=== PATIENT | female | born 1950 | race Caucasian/White ===

== ENCOUNTER → 2017-02-17 | Outpatient (CLI) | payer OTHER ==
[~2017-02-17] MED LIST: ALPRAZOLAM; AMLODIPINE BESYL5 MG PO; ANTARA PO; ASPIRIN81 M1 PO; ATENOLOL; ATENOLOL PO; AZITHROMYCIN500 MG PO; GLUCOTEN CAPLET1 TAB PO; LEVAQUIN750 MG PO; LEVOTHROID100 MC1 PO; LIPITOR; LIPITOR PO; LORTAB 7.5-5001 TAB; LOVAZA PO; MOTRIN400 MG PO; MULTI-DAY1 TAB PO; NEXIUM; NEXIUM PO; NEXIUM20 MG PO; OMEPRAZOLE20 M2 PO; PREMARIN; PROMETHAZINE W118 M1 PO; PROZAC; PROZAC PO; PROZAC40 MG PO; SYNTHROID PO; TENORMIN50 MG PO; TYLENOL325 M1 PO; VICODIN PO; VITAL-D RX TABL1 TAB PO; XANAX0.5 MG PO; XANAX2 MG PO; ZYRTEC-D T1 TAB.SR . PO
--- NOTE | ~2017-02-17 | MY11 ---
[facility] A Service of [facility] RADIOLOGY TEXT RESULTS PATIENT: JANY BYRD LOCATION: [facility] : 46 UNIT #: [id number] AGE: [address]: Allen Colbert MD SEX: F ORDER DR: [id number] [facility] [address] [place], [place] [address] [id number] O MR#: [id number] Acc #: [id number] NAME: JANY BYRD : 1950 SEX: F STUDY DATE/TIME: 02/17/2017 10:43 UNIT: [facility] ROOM: STUDY DESCRIPTION: MY Mammogram Screening Dig Lucas Attending Physician: Allen Colbert M.D. Ordering Physician: Allen Colbert M.D. Primary Care Physician: Allen Colbert M.D. MEDICAL IMAGING REPORT This report is preliminary unless electronic signature is present EXAM Bilateral digital screening mammogram with CAD, 02/17/2017. INDICATION 66-year-old female for routine screening. No reported problems. No personal or family history of breast cancer. No surgeries. History of throat cancer. TECHNIQUE CC and MLO views of the breast were obtained and reviewed with an FDA-approved CAD device. COMPARISONS 02/12/2015, 10/23/2013, 09/06/2012 FINDINGS Breast parenchyma is composed of scattered fibroglandular densities. The pattern is unchanged. The left breast is slightly larger than the right also stable. No new dominant nodule, mass, or suspicious cluster of microcalcifications. Benign-appearing nodularity in the upper outer posterior left breast stable dating back to at least 2011. IMPRESSION Benign screening mammogram. One-year followup recommended. Patients over the age of 40 are entered into a reminder system with target due date for the next mammogram. A result letter will also be sent to the patient. BIRADS: 2 Benign finding. [facility] A Service of [facility] RADIOLOGY TEXT RESULTS PATIENT: JANY BYRD LOCATION: [facility] : 46 UNIT #: [id number] AGE: [address]: Allen Colbert MD SEX: F ORDER DR: Dictated by... Marcelo Morris M.D. THIS IS AN ELECTRONICALLY VERIFIED REPORT Marcelo Morris M.D. at 02/17/2017 5:12 PM RAMONA/jonnathan TD: 02/17/2017 13:47 JOB #: [id number] MEDICAL IMAGING REPORT Page 1 of 1 COPY
== END | disposition home or self-care (01) ==
LOC: CWCC 10:25
DX: Z12.31 Encounter for screening mammogram for malignant neoplasm of breast (principal); Z85.818 Personal history of malignant neoplasm of other sites of lip, oral cavity, and pharynx
CPT/HCPCS: G0202